=== PATIENT | female | born 2000 | race Caucasian/White ===

== ENCOUNTER 2023-11-18 12:47 | Emergency (ER) | payer BC, SELFPAY ==
--- NOTE | 2023-11-18 12:53 | ED.GENMED ---
History of Present Illness
General
Chief Complaint: Chest Pain
Source: patient
Exam Limitations: none
Time Seen by Provider: 11/18/23 12:48
Travel History
Have you had any contact with someone who has COVID-19?: Unable to Answer
Do you have any symptoms of coronavirus? Fever > 100 degrees, chills, cough, shortness of breath, sore throat, loss of taste or smell, muscle aches, or headache?: Unable to Answer
History of Present Illness
History of Present Illness:
23-year-old otherwise healthy female presents with midsternal chest pain that radiates to bilateral sides and down the arm getting worse over the past 3 to 4 days. She does feel short of breath occasionally. She does not take any medications.
Pain is not pleuritic. No recent travel or surgery. Fever or cough. No other complaints.
Phy Exam
Physical Exam
Physical Exam:
General: Well-appearing female no acute respiratory distress
HEENT: Normocephalic atraumatic
Heart: Regular rate and rhythm S1-S2 no murmurs
Lungs: Clear to auscultation bilaterally no wheezing
Scores
Heart Score for Chest Pain Patients
STEMI patient?: No
History: Slightly or Non-Suspicious
ECG: Normal
Age: </= 45 years
Risk Factors: No Risk Factors
Troponin: </= Normal Limit
Heart Score for Chest Pain Patients: 0
Heart Score Risk: 2.5% MACE over next 6 weeks
Course
Orders/Labs/Results
Orders:
Orders
11/18/23 12:49
Electrocardiogram (*1) Urgent
Reason for Study: Chest Pain
EKG- Treatment ONCE
Test Result ONCE
11/18/23 13:07
Complete Blood Count/With Diff Urgent
Comprehensive Metabolic Panel Urgent
D-Dimer Urgent
HCG, Serum Qualitative Screen Urgent
Lipase Urgent
Troponin I Urgent
11/18/23 13:52
CT Chest Pe Study Urgent
Comment:
Reason For Exam: chest/back and arm pain
Abnormal Lab Results
11/18/23
13:07
Absolute Monos (auto) 0.7 H 10^3/uL
(0.1-0.6)
11/18/23 13:07
11/18/23 13:07
Vital Signs
Initial and Last Documented VS:
Initial Vital Signs
Temp Pulse Resp BP Pulse Ox
98.1 F 98 16 128/87 100
11/18/23 12:55 11/18/23 12:55 11/18/23 12:55 11/18/23 12:55 11/18/23 12:55
Last Documented Vital Signs
Temp Pulse Resp BP Pulse Ox
98.1 F 98 16 128/87 100
11/18/23 12:55 11/18/23 12:55 11/18/23 12:55 11/18/23 12:55 11/18/23 12:55
MDM/Problems Addressed
Differential Diagnosis Includes:
Chest pain. Consider arrhythmia versus ACS versus PE versus pneumothorax. Workup initiated with D-dimer and troponin both of which are undetectable. Patient still describes significant pain from her chest to her arm and her back. Did order PE
study of chest which was negative and reassuring. No arrhythmias noted. Will advise follow-up with cardiology. Stable for discharge
*Critical Care Note
Total Time (30-74mins, 75-104mins- exclusive of procedures): Not Applicable
ED Attending Note
-
Portions of this chart may have been created with voice recognition software.� Occasional wrong word or��sound alike� substitutions may have occurred due to the inherent limitations of voice recognition software.
Discharge Plan
Departure
Patient Disposition: Home (Routine Discharge)
Date of Disposition: 11/18/23
Time of Disposition: 15:23
Patient with high blood pressure during this ER visit?: No
Discharge Problem:
Chest pain
Instructions: Chest Pain CBC Follow Up
Referrals:
Judi Hearn, DO [Family Provider] -
Activity Restrictions/Additional Instructions:
Please return for worsening symptoms. Follow up with cardiology otherwise.
Interventions
Interventions:
ED- Cardiac Assessment Last Done: 11/18/23 12:49
[2023-11-18 12:55] VITALS: BP 128/87
[2023-11-18 13:15] LABS: % Basophils 0.5 % (0-2); % Eosinophils 0.8 % (0-6); % Immature Granulocytes 0.2 % (0-0.5); % Lymphocytes 24.1 % (20.5-51.1); % Monocytes 7.7 % (1.7-9.3); % Neutrophils 66.7 % (42.2-75.2); Absolute Eosinophils 0.1 10^3/uL (0-0.7); Absolute Lymphocytes 2.1 10^3/uL (1.2-3.4); Absolute Monocytes 0.7 10^3/uL (0.1-0.6); Absolute Neutrophils 5.7 10^3/uL (1.4-6.5); Hematocrit 39.9 % (37.0-47.0); Mean Corp Hgb Conc. 35.1 g/dL (33.0-37.0); Mean Corpuscular Hgb 28.6 pg (27.0-31.0); Mean Corpuscular Volume 81.4 fL (81.0-99.0); Mean Platelet Volume 9.8 fL (7.4-10.4); Nucleated Red Blood Cells % 0 %; Platelet Count 313 10^3/uL (130-400); Red Cell Dist. Width 12.5 % (11.5-14.5); White Blood Cell Count 8.5 10^3/uL (4.8-10.8)
[2023-11-18 13:27] LABS: HCG, Serum Qualitative Screen Negative
[2023-11-18 13:31] LABS: ALT (SGPT) 16 U/L (0-35); AST (SGOT) 20 U/L (14-36); Albumin 4.7 g/dl (3.5-5.0); Alkaline Phosphatase 74 U/L (38-126); Blood Urea Nitrogen 9 mg/dl (7-17); Calcium 9.4 mg/dl (8.4-10.2); Carbon Dioxide 26 mmol/L (22-30); Chloride 104 mmol/L (98-107); Glucose 94 mg/dl (70-99); Lipase 77 U/L (23-300); Potassium 3.9 mmol/L (3.5-5.1); Sodium 137 mmol/L (135-145); Total Bilirubin 0.8 mg/dl (0.2-1.3); Total Protein 7.7 g/dl (6.3-8.2); eGFR > 60.00
[2023-11-18 13:36] LABS: D-Dimer < 0.27 ug/mlFEU (0.00-0.50)
[2023-11-18 13:41] LABS: Troponin I < 0.012 ng/ml
== END 2023-11-18 15:29 | disposition home or self-care (01) ==
LOC: EMR 12:47
PROVIDERS: Physician Assistant; EMERGENCY PHYSICIAN Emergency Medicine; FAMILY PHYSICIAN Internal Medicine
DX: R07.89 Other chest pain (principal); R06.02 Shortness of breath; M54.9 Dorsalgia, unspecified
CPT/HCPCS: 99285; 71275; 80053; 83690; 84484; 84703; 85025; 85379; 93005; Q9967

== ENCOUNTER → 2024-01-05 15:31 | Outpatient (REF) | payer BC, SELFPAY | LOC: RCS 15:31 | PROVIDERS: ATTENDING PHYSICIAN Internal Medicine | DX: R07.2 Precordial pain (principal) | CPT/HCPCS: 93306 ==